=== PATIENT | female | born 1970 | race Caucasian/White ===

== ENCOUNTER 2020-03-10 11:56 | Outpatient (CLI) | payer OTHER | END 2020-03-10 15:20 | disposition home or self-care (01) | LOC: LAB 11:56 | DX: R05 Cough (principal); Z20.828 Contact with and (suspected) exposure to other viral communicable diseases ==

== ENCOUNTER 2021-09-14 11:48 | Outpatient (CLI) | payer OTHER | END 2021-09-14 11:49 | disposition home or self-care (01) | LOC: SONOGRAMA 11:48 | PROVIDERS: ATTEND Pathology Anatomic Pathology & Clinical Pathology | DX: E03.8 Other specified hypothyroidism (principal) ==